=== PATIENT | male | born 1990 | race Caucasian/White ===

== ENCOUNTER 2017-04-11 12:11 | Emergency (ER) | payer OTHER ==
[~2017-04-11] VITALS: Ht 180.3 cm; Wt 110.0 kg
[~2017-04-11 12:11] MED LIST: IBUPROFEN200 MG PO; LORTAB5 PO; NAPROSYN500 MG PO; NO CURRENT MEDS; NO HOME MEDS; TRIMOX500 MG PO; ULTRAM50 M1 OR
[2017-04-11] MEDS ORDERED: MOTRIN400 MG PO (13:04)
[2017-04-11 13:06] VITALS: BP 134/84
== END 2017-04-11 13:30 | disposition home or self-care (01) | DRG 563 ==
LOC: ED 12:11
PROC: 2W3CX1Z Immobilization of Right Lower Arm using Splint (ICD-10-PCS; principal; 2017-04-11)
DX: S62.340A Nondisplaced fracture of base of second metacarpal bone, right hand, initial encounter for closed fracture (principal); W22.8XXA Striking against or struck by other objects, initial encounter; Y93.E9 Activity, other interior property and clothing maintenance; Y92.009 Unspecified place in unspecified non-institutional (private) residence as the place of occurrence of the external cause

== ENCOUNTER 2018-01-26 14:57 | Emergency (ER) | payer OTHER ==
[~2018-01-26] VITALS: Ht 180.3 cm; Wt 110.0 kg
[~2018-01-26 14:57] MED LIST changes: +MOTRIN400 MG PO
[2018-01-26 16:59] VITALS: BP 137/84
== END 2018-01-26 17:00 | disposition home or self-care (01) | DRG 605 ==
LOC: ED 14:57
DX: S90.32XA Contusion of left foot, initial encounter (principal); M06.9 Rheumatoid arthritis, unspecified; W22.8XXA Striking against or struck by other objects, initial encounter; Y93.02 Activity, running; Y92.410 Unspecified street and highway as the place of occurrence of the external cause

== ENCOUNTER 2018-03-26 23:57 | Emergency (ER) | payer OTHER ==
[~2018-03-26] VITALS: Ht 180.3 cm; Wt 118.0 kg
[2018-03-27 00:28] LABS: URINE BILIRUBIN - DIPSTICK NEGATIVE (NEGATIVE); URINE BLOOD DIPSTICK NEGATIVE (NEGATIVE); URINE COLOR YELLOW; URINE GLUCOSE - DIPSTICK NEGATIVE (NEGATIVE); URINE KETONE NEGATIVE (NEGATIVE); URINE LEUK ESTERASE NEGATIVE (NEGATIVE); URINE NITRITE - DIPSTICK NEGATIVE (Negative); URINE PROTEIN - DIPSTICK NEGATIVE (NEG-TRACE); URINE SPECIFIC GRAVITY <=1.005; URINE UROBILINOGEN - DIPSTICK 0.2 E.U./dL (0.2)
[2018-03-27 00:28] LABS: HEMATOCRIT 48.2 % (39.0-50.0); HEMOGLOBIN 15.9 g/dl (14.0-18.0); IMMATURE GRANULOCYTES 0.2 % (0.0-5.0); MEAN CELL VOLUME 88.9 fL CALC (80.0-100.0); MEAN CORPUSCULAR HGB 29.3 pG CALC (26.0-32.0); PLATELET COUNT 222 thou/uL (130-400); RED BLOOD COUNT 5.42 mill/uL (4.70-6.10); RED CELL DISTRI WIDTH 13.1 % (11.5-15.5)
[2018-03-27 00:41] LABS: ALBUMIN 5.1 g/dL (3.2-5.0); ALKALINE PHOSPHATASE 74 u/l (38-126); ANION GAP 21 (6-22 (CALC)); BILIRUBIN, TOTAL 0.3 mg/dL (0.0-1.4); BUN 14 mg/dL (9-20); BUN/CREATININE RATIO 11 (12-20 (CALC)); CARBON DIOXIDE 20 mmol/l (22-30); CHLORIDE 108 mmol/l (95-108); CREATININE 1.3 mg/dL (0.7-1.3); GFR > 60 ML/MIN (>=60 (CALC)); GFR FOR AFR.AMER. > 60 ML/MIN (>=60 (CALC)); POTASSIUM 4.1 mmol/l (3.5-5.1); SGOT/AST 30 u/l (17-59); SODIUM 145 mmol/l (137-146); TOTAL PROTEIN 8.5 g/dL (6.3-8.2)
[2018-03-27 00:47] LABS: ETHYL ALCOHOL 235 mg/dl (0-30)
[2018-03-27 00:52] LABS: MANUAL DIFFERENTIAL YES
[2018-03-27 01:00] LABS: BARBITURATES NEGATIVE (NEGATIVE); COCAINE NEGATIVE (NEGATIVE); METHADONE NEGATIVE (NEGATIVE); OXCYCODONE NEGATIVE (NEGATIVE); TETRAHYDROCANNABIONOL POSITIVE (NEGATIVE); TRICYLIC ANTIDEPRESSANTS NEGATIVE (NEGATIVE)
[2018-03-27 01:34] VITALS: BP 160/62
== END 2018-03-27 01:26 | DRG 914 ==
LOC: ED 23:57
PROVIDERS: Family Medicine
DX: S09.90XA Unspecified injury of head, initial encounter (principal); F10.120 Alcohol abuse with intoxication, uncomplicated; F12.90 Cannabis use, unspecified, uncomplicated; Y90.7 Blood alcohol level of 200-239 mg/100 ml; X83.8XXA Intentional self-harm by other specified means, initial encounter; Y92.810 Car as the place of occurrence of the external cause

== ENCOUNTER 2020-03-13 16:33 | Emergency (ER) | payer SELFPAY ==
[~2020-03-13] VITALS: Ht 180.3 cm; Wt 127.0 kg
[2020-03-13] MEDS ORDERED: BACTRIM DS1 TAB PO (18:18)
[2020-03-13 18:20] VITALS: BP 119/74
== END 2020-03-13 18:20 | disposition home or self-care (01) | DRG 603 ==
LOC: ED 16:33
PROC: 0H98XZZ Drainage of Buttock Skin, External Approach (ICD-10-PCS; principal; 2020-03-13)
DX: L02.31 Cutaneous abscess of buttock (principal)

== ENCOUNTER 2020-03-15 14:26 | Emergency (ER) | payer SELFPAY ==
[~2020-03-15] VITALS: Ht 180.3 cm; Wt 129.5 kg
[~2020-03-15 14:26] MED LIST changes: +BACTRIM DS1 TAB PO
[2020-03-15 16:10] VITALS: BP 128/81
== END 2020-03-15 16:10 | disposition home or self-care (01) | DRG 951 ==
LOC: ED 14:26
DX: Z48.01 Encounter for change or removal of surgical wound dressing (principal)

== ENCOUNTER 2021-06-07 11:09 | Emergency (ER) | payer SELFPAY ==
[~2021-06-07] VITALS: Ht 180.3 cm; Wt 75.0 kg
[2021-06-07 11:52] VITALS: BP 135/86
[2021-06-07 12:01] VITALS: BP 154/89
[2021-06-07 12:16] VITALS: BP 120/73
[2021-06-07 12:30] VITALS: BP 121/81
[2021-06-07 12:46] VITALS: BP 128/88
[2021-06-07 12:55] VITALS: BP 128/88
== END 2021-06-07 12:55 | disposition home or self-care (01) | DRG 556 ==
LOC: ED 11:09
DX: M25.571 Pain in right ankle and joints of right foot (principal)

== ENCOUNTER 2022-01-24 05:50 | Emergency (ER) | payer SELFPAY ==
[~2022-01-24] VITALS: Ht 180.3 cm; Wt 140.0 kg
[2022-01-24 05:59] VITALS: BP 179/116
[2022-01-24 06:33] VITALS: BP 150/103
[2022-01-24] MEDS ORDERED: TRAMADOL HYDROC50 M1 PO (07:35)
[2022-01-24] MEDS ORDERED: KEFLEX500 MG PO (07:35)
[2022-01-24] MEDS ORDERED: MOTRIN800 MG PO (07:35)
[2022-01-24] MEDS ORDERED: CYCLOBENZAPRINE10 MG PO (07:35)
[2022-01-24 07:41] VITALS: BP 150/103
== END 2022-01-24 07:57 | disposition home or self-care (01) | DRG 605 ==
LOC: ED 05:50
PROC: 0HQFXZZ Repair Right Hand Skin, External Approach (ICD-10-PCS; principal; 2022-01-24)
DX: S61.411A Laceration without foreign body of right hand, initial encounter (principal); S61.412A Laceration without foreign body of left hand, initial encounter; S43.101A Unspecified dislocation of right acromioclavicular joint, initial encounter; W13.2XXA Fall from, out of or through roof, initial encounter

== ENCOUNTER 2022-10-24 03:14 | Emergency (ER) | payer SELFPAY ==
[~2022-10-24] VITALS: Ht 180.3 cm; Wt 136.0 kg
[~2022-10-24 03:14] MED LIST changes: +CYCLOBENZAPRINE10 MG PO; +KEFLEX500 MG PO; +MOTRIN800 MG PO; +TRAMADOL HYDROC50 M1 PO
[2022-10-24 03:28] VITALS: BP 143/95
[2022-10-24 03:30] VITALS: BP 151/98
[2022-10-24 04:15] VITALS: BP 151/98
== END 2022-10-24 04:16 | disposition left against medical advice (07) | DRG 605 ==
LOC: ED 03:14
PROC: 0HQ0XZZ Repair Scalp Skin, External Approach (ICD-10-PCS; principal; 2022-10-24)
DX: S01.01XA Laceration without foreign body of scalp, initial encounter (principal); I10 Essential (primary) hypertension; T46.4X6A Underdosing of angiotensin-converting-enzyme inhibitors, initial encounter; Z91.128 Patient's intentional underdosing of medication regimen for other reason; W01.0XXA Fall on same level from slipping, tripping and stumbling without subsequent striking against object, initial encounter; Z53.29 Procedure and treatment not carried out because of patient's decision for other reasons